=== PATIENT | female | born 1975 ===

== ENCOUNTER 2023-07-18 06:22 | Day surgery (SDC) | payer OTHER ==
[~2023-07-18] VITALS: Ht 152.4 cm; Wt 219.5 kg
[~2023-07-18 06:22] MED LIST: CRESTOR20 MG PO; LANTUS; TOPROL XL100 M1 PO; TRIJARDY XR 5-1 EACH PO; ZETIA10 MG PO
== END 2023-07-18 16:10 | disposition home or self-care (01) ==
LOC: CIR.AMB 06:22
PROVIDERS: ATTEND Orthopaedic Surgery Hand Surgery
DX: M65.312 Trigger thumb, left thumb (principal); Z20.822 Contact with and (suspected) exposure to COVID-19; E11.9 Type 2 diabetes mellitus without complications; E78.00 Pure hypercholesterolemia, unspecified; I10 Essential (primary) hypertension